=== PATIENT | male | born 1950 | race Caucasian/White ===

== ENCOUNTER 2024-08-05 12:23 | Outpatient (CLI) | payer MEDICARE, BC, SELFPAY ==
--- NOTE | 2024-08-05 12:15 | DI.RAD_ITS ---
Exam(s) XR WRIST RT COMPLETE EXAM: XR WRIST RT COMPLETE CLINICAL HISTORY: right wrist injury,? fracture, c/o radius injury,[id number]. TECHNIQUE: 2D digital imaging was performed of the right wrist. Three views were obtained. PA, lateral and oblique views were obtained. COMPARISON: No exams were available for comparison FINDINGS: BONES: There is an acute longitudinally oriented intra-articular fracture of the distal radius beginning in the distal metaphysis and extending to the articular surface. No bony destructive lesion is seen. JOINTS: The carpal bones are normally aligned. Degenerative changes are seen in the wrist particularly at the 1st CMC joint. SOFT TISSUE: Atherosclerotic calcification is seen. IMPRESSION: Nondisplaced longitudinally oriented intra-articular fracture of the distal right radius. DATA REPOSITORY: RADIATION DOSE DELIVERED:
== END 2024-08-05 12:43 ==
LOC: DI 12:24
PROVIDERS: Visit Provider Physician Assistant
DX: S52.571A Other intraarticular fracture of lower end of right radius, initial encounter for closed fracture (principal); X58.XXXA Exposure to other specified factors, initial encounter
CPT/HCPCS: 73110

== ENCOUNTER → 2024-08-06 09:52 | Outpatient (BNVA) | payer MEDICARE, BC, SELFPAY | PROVIDERS: Visit Provider Physician Assistant | DX: S52.571A Other intraarticular fracture of lower end of right radius, initial encounter for closed fracture (principal); W20.8XXA Other cause of strike by thrown, projected or falling object, initial encounter; Y93.F9 Activity, other caregiving | CPT/HCPCS: 99203 ==